=== PATIENT | male | born 1970 | race Caucasian/White ===

== ENCOUNTER 2021-03-11 20:11 | Inpatient (IN) ==
[2021-03-11] MEDS ORDERED: ONDANSETRON INJ 2 MG/ML 2 ML VIAL IV STA (20:44)
[2021-03-11] MEDS ORDERED: SODIUM CHLORIDE 0.9% 1000ML 1,000 ML IV ONE ×2 (20:44→23:42)
[2021-03-11] MEDS ORDERED: FAMOTIDINE 20MG IV PUSH 20 MG/5 ML SYR IV STA (20:44)
--- NOTE | 2021-03-11 20:53 | Emergency Department Note ---
Impression & Plan Metastatic colon cancer to liver, Transaminitis, Influenza A, Dehydration ED Provider Note NAME: MICHEAL BUNCH AGE: 50 SEX: M ARRIVES VIA: Ambulance INFORMANT: Patient ED PROVIDER(S): Giovani Messer MD CHIEF COMPLAINT: Cancer, weakness, nausea/vomiting, ?sepsis PLAN: Disposition: Admit MEDICAL DECISION MAKING: The patient is a pleasant 50-year-old gentleman with a past medical history of metastatic colon cancer with liver metastases who follows at [facility] in [facility] who presents to the emergency department accompanied by his for evaluation of worsening generalized weakness, nausea and vomiting in the setting of having testing performed last week where he was instructed on Friday that he should be admitted for further evaluation of possible biliary obstruction and possible sepsis given lab work that he had performed. Per the patient's the patient was exhausted after being several days there for ongoing testing and had decided he wanted to return home. The further adds that they had identified that the patient's indwelling chemotherapy infusion pump to his liver was no longer functioning and was to be abandoned. They were considering possible options for radiation treatment. They did have a PET scan performed but are awaiting results. The patient and the are unclear regarding what the next steps were given he was leaving against their advice but they were expecting to be contacted for further instruction. 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 They have no local medical providers. The patient describes being tired of his long standing treatments related to his cancer in understands that he might continue to have treatments only to " in 2 years". He describes considering limitations on care though is not specific and would need to consider on a knwa-[id number] basis. He reports if it was noted that he had a blockage of his biliary system that he would be open to a procedure for this. The patient's worries that he is more confused but she does acknowledge that he does exhibit awareness of his condition options for treatment and risks and benefit of pursuing treatment or not. On arrival the patient is fatigued appearing, chronically ill but no acute distress, afebrile heart rate in the 90s and vital signs otherwise stable. He appears clinically dry. He has equivocal jaundice and subtle icterus. His abdomen is nontender. His infusion pump is palpable in the left lower quadrant without discoloration warmth or tenderness. EKG without overt acute ischemia. Chest x-ray negative for acute cardiopulmonary process per my preliminary review. WBC and platelets within normal limits. H/H 13.7/30.3 without prior values for comparison. INR 1.2. Chemistry without metabolic acidosis. BUN/creatinine> 20 consistent with the patient's clinical dry appearance. Lactic acid 1.3, within normal limits. Electrolytes without significant abnormality. LFTs with mild elevations with total bilirubin 2.0 and direct bilirubin 1.3 with AST 79 and alk phos 388 without recent values for comparison. Troponin negative/undetectable. Procalcitonin is mildly elevated at 1.5. UA without evidence of infection. COVID-19 PCR was negative. Influenza PCR was positive for influenza A. CT of the abdomen pelvis was performed and per preliminary stat rad report alissa wells widely metastatic disease involving the liver. 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 I did review the results with the patient and at the bedside and they agree with plan for admission. When informed of his positive flu test and they recalled that they actually knew this from testing performed on Friday at [facility]. Case was discussed with Dr. Henry, [facility] hospitalist, who will evaluate the patient for admission. Zosyn initially ordered empirically however given unable to obtain culture from patient's port will defer empiric treatment until this is obtained given the patient is otherwise stable. Triage Nursing notes reviewed and agree them. Prior medical records reviewed Vital Signs: reviewed and remarkable for hypertension. Differential diagnosis: Infection, dehydration, metabolic abnormality, hypo/hyperglycemia, electrolyte disturbance, anemia, hypoxia, cardiac sources, intracerebral event, toxicologic, neurologic, as well as other pathologies. ER treatment provided: See below. Diagnostics interpreted by me: ECG: Normal sinus rhythm, 83 bpm, no ectopy, LVH, no overt ST elevation or depression, QTC 472, cures 102. Cardiac Monitoring: An order for continuous cardiac monitoring was placed and demonstrated normal sinus rhythm, 83 bpm, no ectopy. Laboratory studies: See below Imaging studies: See below [facility] Preliminary Findings Only See Final Report For Complete Findings CT ABDOMEN & PELVIS With Contrast: Widely metastatic disease involving the liver. Much of the liver parenchyma appears to be involved, particularly of the left hepatic lobe. 11 mm solid nodule of the left lower lobe. This is concerning in the setting of metastatic disease. Portacaval lymphadenopathy. 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 Radiologist: Devyn Velazquez MD Study ready at 22:40 and initial results transmitted at 00:34 Consultation(s): Case was discussed with Dr. Henry, [facility] hospitalist, who will evaluate the patient for admission. HPI: The patient is a pleasant 50-year-old gentleman with a past medical history of metastatic colon cancer with liver metastases who follows at [facility] in [facility] who presents to the emergency department accompanied by his for evaluation of worsening generalized weakness, nausea and vomiting in the setting of having testing performed last week where he was instructed on Friday that he should be admitted for further evaluation of possible biliary obstruction and possible sepsis given lab work that he had performed. Per the patient's the patient was exhausted after being several days there for ongoing testing and had decided he wanted to return home. The further adds that they had identified that the patient's indwelling chemotherapy infusion pump to his liver was no longer functioning and was to be abandoned. They were considering possible options for radiation treatment. They did have a PET scan performed but are awaiting results. The patient and the are unclear regarding what the next steps were given he was leaving against their advice but they were expecting to be contacted for further instruction. 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 They have no local medical providers. The patient describes being tired of his long standing treatments related to his cancer in understands that he might continue to have treatments only to " in 2 years". He describes considering limitations on care though is not specific and would need to consider on a [id number] basis. He reports if it was noted that he had a blockage of his biliary system that he would be open to a procedure for this. The patient's worries that he is more confused but she does acknowledge that he does exhibit awareness of his condition options for treatment and risks and benefit of pursuing treatment or not. ROS: See above HPI for pertinent positives & negatives. A total of 10 systems reviewed and were otherwise negative. PAST MEDICAL HISTORY:See Below PAST SURGICAL HISTORY:See Below FAMILY HISTORY:See Below SOCIAL HISTORY:See Below HOME MEDICATIONS:See Below ALLERGIES:See Below VITALS:See Below PHYSICAL EXAMINATION: GENERAL: Awake, alert, fatigued, chronically-appearing, in no distress HENT: Normocephalic, atraumatic. Oropharynx with dry mucous membranes and otherwise unremarkable. EYES: Normal conjunctiva. Sclera with subtle icterus. NECK: Supple. No nuchal rigidity. FROM. No JVD. RESPIRATORY: Clear to auscultation. CARDIAC: Regular rate, normal rhythm. Extremities warm and well perfused. Pulses equal. ABDOMEN: Soft, non-distended. No tenderness to palpation. Infusion pump is palpable in the left lower quadrant without discoloration warmth or tenderness. No rebound or guarding. No masses. RECTAL: Deferred. MUSCULOSKELETAL: Chest examination reveals no tenderness. The back is symmetrical on inspection without obvious abnormality. There is no CVA tenderness to palpation. No joint edema. LOWER EXTREMITIES: Calves are equal size bilaterally and non-tender. No edema. No discoloration. NEURO: Normal sensorium. No sensory or motor deficits noted. SKIN: No rash. Equivocal jaundice. Giovani Messer MD Past Med/Surg History Medical History Hypertension Metastatic colon cancer to liver Family History Other Family history non-contributory Social History Smoking Status: Never smoker Feels Safe at Home: Yes Allergies Allergies Allergy/AdvReac Type Severity Reaction Status Date / Time No Known Allergies Allergy Unverified 03/11/21 22:08 Home Meds Home Medications Medication Instructions Recorded Confirmed lisinopril 20 mg tablet 20 mg PO DAILY 03/11/21 03/11/21 lorazepam 0.5 mg tablet 0.5 mg PO TID PRN 03/11/21 03/11/21 ondansetron HCl 8 mg tablet 8 mg PO Q8 PRN 03/11/21 03/11/21 oxycodone 5 mg tablet 5 mg PO UD PRN 03/11/21 03/11/21 Results & Data (ED) Vital Signs Vital Signs - 24 hr 03/11/21 20:19 03/11/21 20:25 03/11/21 20:30 Temperature 37 C Temperature Source Oral Pulse Rate 96 H 94 H 88 Pulse Rate [Apical] Pulse Rate from SpO2 Sensor 95 H 88 Pulse Rhythm [Apical] Pulse Strength [Apical] Respiratory Rate 20 18 18 Respiratory Effort / Characteristics Non-Labored Spontaneous Respiratory Depth Normal Blood Pressure 144/110 H 148/104 H Blood Pressure [Right Arm] Blood Pressure Mean 121 118 Blood Pressure Mean [Right Arm] Blood Pressure Position [Right Arm] Pulse Oximetry 97 94 96 Oxygen Delivery Method Room Air Room Air Room Air Sepsis Recent Fever Within 48 Hours No Sepsis New/Unexplained Change in Mental Status No Sepsis Action Taken by Nursing No Action Required 03/11/21 20:45 03/11/21 21:00 03/11/21 21:15 Temperature Temperature Source Pulse Rate 72 Pulse Rate [Apical] Pulse Rate from SpO2 Sensor 73 Pulse Rhythm [Apical] Pulse Strength [Apical] Respiratory Rate 13 Respiratory Effort / Characteristics Non-Labored Non-Labored Respiratory Depth Blood Pressure 140/102 H Blood Pressure [Right Arm] Blood Pressure Mean 114 Blood Pressure Mean [Right Arm] Blood Pressure Position [Right Arm] Pulse Oximetry 97 Oxygen Delivery Method Room Air Sepsis Recent Fever Within 48 Hours Sepsis New/Unexplained Change in Mental Status Sepsis Action Taken by Nursing 03/11/21 21:30 03/11/21 21:45 03/11/21 22:00 Temperature Temperature Source Pulse Rate 67 82 Pulse Rate [Apical] Pulse Rate from SpO2 Sensor 71 87 Pulse Rhythm [Apical] Pulse Strength [Apical] Respiratory Rate 17 20 Respiratory Effort / Characteristics Non-Labored Respiratory Depth Blood Pressure 153/103 H 163/109 H Blood Pressure [Right Arm] Blood Pressure Mean 119 127 Blood Pressure Mean [Right Arm] Blood Pressure Position [Right Arm] Pulse Oximetry 97 95 Oxygen Delivery Method Room Air Room Air Sepsis Recent Fever Within 48 Hours Sepsis New/Unexplained Change in Mental Status Sepsis Action Taken by Nursing 03/11/21 22:15 03/12/21 00:43 Temperature Temperature Source Pulse Rate Pulse Rate [Apical] 66 Pulse Rate from SpO2 Sensor Pulse Rhythm [Apical] Regular Pulse Strength [Apical] Normal Respiratory Rate 19 Respiratory Effort / Characteristics Non-Labored Non-Labored Respiratory Depth Normal Blood Pressure Blood Pressure [Right Arm] 174/105 H Blood Pressure Mean Blood Pressure Mean [Right Arm] 128 Blood Pressure Position [Right Arm] Lying Pulse Oximetry 98 Oxygen Delivery Method Room Air Sepsis Recent Fever Within 48 Hours Sepsis New/Unexplained Change in Mental Status Sepsis Action Taken by Nursing Laboratory Data Attestation: I reviewed the patient's lab results. Result diagrams: 03/11/21 20:31 03/11/21 20:31 Lab Results 03/11/21 03/11/21 03/11/21 Range/Units 20:31 20:31 20:31 WBC (4.8-10.8) K/uL RBC (4.7-6.1) M/uL Hgb (14.0-18.0) g/dL Hct (42-52) % MCV (80-100) fL MCH (25-34) pg MCHC (32-36) g/dL RDW Std Deviation (36.4-46.3) fL RDW Coeff of Wade (11.5-14.5) % Plt Count (130-400) K/uL MPV (7.4-10.4) fL Immature Gran % (Auto) % Neut % (Auto) % Lymph % (Auto) % [place] % (Auto) % Eos % (Auto) % Baso % (Auto) % Neut # (Auto) (1.4-6.5) K/uL Lymph # (Auto) (1.2-3.4) K/uL [place] # (Auto) (0.11-0.59) K/uL Eos # (Auto) (0-0.5) K/uL Baso # (Auto) (0-0.2) K/uL Immature Gran # (Auto) (0.00-0.02) K/uL PT (9.0-12.0) Seconds INR (0.9-1.1) APTT (21.0-31.0) Seconds PTT Ratio Sodium 132 L (136-145) mmol/L Potassium 3.7 (3.5-5.1) mmol/L Chloride 96 L (98-107) mmol/L Carbon Dioxide 29 (21-32) mmol/L Anion Gap 7.0 (3-11) BUN 19 H (7-18) mg/dl Creatinine 0.75 (0.6-1.4) mg/dl Est Cr Clr Drug Dosing 126.5 ml/min Est GFR ( Amer) 122.2 ml/min Est GFR (Non-Af Amer) 105.5 ml/min BUN/Creatinine Ratio 24.9 H (10-20) Glucose 94 (70-99) mg/dl Lactate (0.4-2.0) mmol/L Calcium 9.0 (8.5-10.1) mg/dl Magnesium 2.2 (1.8-2.4) mg/dl Total Bilirubin 2.0 H (0.2-1) mg/dl Direct Bilirubin 1.3 H (0-0.2) mg/dl AST 79 H (15-37) U/L ALT 52 (12-78) Alkaline Phosphatase 388 H (45-117) U/L Ammonia < 10.0 L (11-32) umol/L Troponin I < 0.015 (0-0.045) ng/ml Total Protein 6.9 (6.4-8.2) gm/dl Albumin 2.4 L (3.4-5.0) gm/dl Globulin 4.5 H (2.5-4.0) gm/dl Albumin/Globulin Ratio 0.5 L (0.9-2) Procalcitonin 1.59 H (0-0.5) ng/ml Urine Color Urine Appearance (Clear) Urine pH (4.5-7.5) Ur Specific Orient (1.000-1.030) Urine Protein (Negative) Urine Glucose (UA) (Negative) Urine Ketones (Negative) Urine Blood (Negative) Urine Nitrite (Negative) Urine Bilirubin (Negative) Urine Urobilinogen (Negative) Ur Leukocyte Esterase (Negative) SARS-CoV-2 (PCR) (Negative) Influenza Type A (PCR) (Neg) Influenza Type B (PCR) (Neg) RSV (RT-PCR) (Neg) 03/11/21 03/11/21 03/11/21 Range/Units 20:31 20:31 20:31 WBC 5.44 (4.8-10.8) K/uL RBC 3.82 L (4.7-6.1) M/uL Hgb 13.7 L (14.0-18.0) g/dL Hct 38.3 L (42-52) % MCV 100.3 H (80-100) fL MCH 35.9 H (25-34) pg MCHC 35.8 (32-36) g/dL RDW Std Deviation 43.2 (36.4-46.3) fL RDW Coeff of Wade 11.7 (11.5-14.5) % Plt Count 151 (130-400) K/uL MPV 10.0 (7.4-10.4) fL Immature Gran % (Auto) 0.4 % Neut % (Auto) 76.8 % Lymph % (Auto) 11.8 % [place] % (Auto) 9.9 % Eos % (Auto) 0.9 % Baso % (Auto) 0.2 % Neut # (Auto) 4.18 (1.4-6.5) K/uL Lymph # (Auto) 0.64 L (1.2-3.4) K/uL [place] # (Auto) 0.54 (0.11-0.59) K/uL Eos # (Auto) 0.05 (0-0.5) K/uL Baso # (Auto) 0.01 (0-0.2) K/uL Immature Gran # (Auto) 0.02 (0.00-0.02) K/uL PT 11.7 (9.0-12.0) Seconds INR 1.2 H (0.9-1.1) APTT 28.5 (21.0-31.0) Seconds PTT Ratio 1.1 Sodium (136-145) mmol/L Potassium (3.5-5.1) mmol/L Chloride (98-107) mmol/L Carbon Dioxide (21-32) mmol/L Anion Gap (3-11) BUN (7-18) mg/dl Creatinine (0.6-1.4) mg/dl Est Cr Clr Drug Dosing ml/min Est GFR ( Amer) ml/min Est GFR (Non-Af Amer) ml/min BUN/Creatinine Ratio (10-20) Glucose (70-99) mg/dl Lactate 1.3 (0.4-2.0) mmol/L Calcium (8.5-10.1) mg/dl Magnesium (1.8-2.4) mg/dl Total Bilirubin (0.2-1) mg/dl Direct Bilirubin (0-0.2) mg/dl AST (15-37) U/L ALT (12-78) Alkaline Phosphatase (45-117) U/L Ammonia (11-32) umol/L Troponin I (0-0.045) ng/ml Total Protein (6.4-8.2) gm/dl Albumin (3.4-5.0) gm/dl Globulin (2.5-4.0) gm/dl Albumin/Globulin Ratio (0.9-2) Procalcitonin (0-0.5) ng/ml Urine Color Urine Appearance (Clear) Urine pH (4.5-7.5) Ur Specific Orient (1.000-1.030) Urine Protein (Negative) Urine Glucose (UA) (Negative) Urine Ketones (Negative) Urine Blood (Negative) Urine Nitrite (Negative) Urine Bilirubin (Negative) Urine Urobilinogen (Negative) Ur Leukocyte Esterase (Negative) SARS-CoV-2 (PCR) (Negative) Influenza Type A (PCR) (Neg) Influenza Type B (PCR) (Neg) RSV (RT-PCR) (Neg) 03/11/21 03/12/21 Range/Units 21:14 00:31 WBC (4.8-10.8) K/uL RBC (4.7-6.1) M/uL Hgb (14.0-18.0) g/dL Hct (42-52) % MCV (80-100) fL MCH (25-34) pg MCHC (32-36) g/dL RDW Std Deviation (36.4-46.3) fL RDW Coeff of Wade (11.5-14.5) % Plt Count (130-400) K/uL MPV (7.4-10.4) fL Immature Gran % (Auto) % Neut % (Auto) % Lymph % (Auto) % [place] % (Auto) % Eos % (Auto) % Baso % (Auto) % Neut # (Auto) (1.4-6.5) K/uL Lymph # (Auto) (1.2-3.4) K/uL [place] # (Auto) (0.11-0.59) K/uL Eos # (Auto) (0-0.5) K/uL Baso # (Auto) (0-0.2) K/uL Immature Gran # (Auto) (0.00-0.02) K/uL PT (9.0-12.0) Seconds INR (0.9-1.1) APTT (21.0-31.0) Seconds PTT Ratio Sodium (136-145) mmol/L Potassium (3.5-5.1) mmol/L Chloride (98-107) mmol/L Carbon Dioxide (21-32) mmol/L Anion Gap (3-11) BUN (7-18) mg/dl Creatinine (0.6-1.4) mg/dl Est Cr Clr Drug Dosing ml/min Est GFR ( Amer) ml/min Est GFR (Non-Af Amer) ml/min BUN/Creatinine Ratio (10-20) Glucose (70-99) mg/dl Lactate (0.4-2.0) mmol/L Calcium (8.5-10.1) mg/dl Magnesium (1.8-2.4) mg/dl Total Bilirubin (0.2-1) mg/dl Direct Bilirubin (0-0.2) mg/dl AST (15-37) U/L ALT (12-78) Alkaline Phosphatase (45-117) U/L Ammonia (11-32) umol/L Troponin I (0-0.045) ng/ml Total Protein (6.4-8.2) gm/dl Albumin (3.4-5.0) gm/dl Globulin (2.5-4.0) gm/dl Albumin/Globulin Ratio (0.9-2) Procalcitonin (0-0.5) ng/ml Urine Color Dark Yellow Urine Appearance Clear (Clear) Urine pH 5.5 (4.5-7.5) Ur Specific Orient > 1.045 H (1.000-1.030) Urine Protein Negative (Negative) Urine Glucose (UA) Negative (Negative) Urine Ketones 1+ H (Negative) Urine Blood Negative (Negative) Urine Nitrite Negative (Negative) Urine Bilirubin Negative (Negative) Urine Urobilinogen Positive H (Negative) Ur Leukocyte Esterase Negative (Negative) SARS-CoV-2 (PCR) NEGATIVE (Negative) Influenza Type A (PCR) Positive A* (Neg) Influenza Type B (PCR) Negative (Neg) RSV (RT-PCR) Negative (Neg) Administered Medications Discontinued Medications Sodium Chloride (Nss 1000ml) 1,000 mls @ 999 mls/hr IV .Q1H1M ONE Stop: 03/11/21 21:44 Last Infusion: 03/11/21 22:00 Dose: 0 mls/hr Documented by: [id number] Admin: 03/11/21 20:57 Dose: 999 mls/hr Documented by: [id number] Famotidine (Pepcid 20mg Iv Push) 20 mg in 5 mls @ 2.5 mls/min IV NOW STA Stop: 03/11/21 20:45 Last Admin: 03/11/21 20:56 Dose: 2.5 mls/min Documented by: [id number] Sodium Chloride (Nss 1000ml) 1,000 mls @ 999 mls/hr IV .Q1H1M ONE Stop: 03/12/21 00:42 Last Infusion: 03/12/21 00:42 Dose: 0 mls/hr Documented by: [id number] Admin: 03/12/21 00:01 Dose: 999 mls/hr Documented by: [id number] Lorazepam (Ativan) 0.5 mg in 1 mls @ 1 mls/min IV NOW STA Stop: 03/11/21 23:49 Last Admin: 03/11/21 23:59 Dose: 1 mls/min Documented by: [id number] Ioversol (Optiray 320 100ml) 95 ml IV ONCE ONE Stop: 03/11/21 22:28 Last Admin: 03/11/21 22:35 Dose: 95 ml Documented by: [id number] Ondansetron HCl (Ondansetron Inj 2 Mg/Ml 2 Ml Vial) 4 mg IV NOW STA Stop: 03/11/21 20:45 Last Admin: 03/11/21 20:56 Dose: 4 mg Documented by: [id number] Discharge Plan Visit Data Chief Complaint: Illness Stated Complaint: Illness Discharge Problem: Metastatic colon cancer to liver, Transaminitis, Influenza A, Dehydration Forms Stand Alone Forms: [facility] Prescriptions Prescriptions: No Action ondansetron HCl 8 mg tablet 8 mg PO Q8 PRN (Reason: Nausea) RF: 0 lisinopril 20 mg Tablet 20 mg PO DAILY RF: 0 lorazepam 0.5 mg tablet 0.5 mg PO TID PRN (Reason: Anxiety) RF: 0 oxycodone 5 mg tablet 5 mg PO UD PRN (Reason: Pain) RF: 0 Referrals Referrals: PCP,NO [Physician] -
[2021-03-11 20:56] LABS: Basophils # (auto) 0.01 K/uL (0-0.2); Basophils % (auto) 0.2 %; Eosinophils # (auto) 0.05 K/uL (0-0.5); Eosinophils % (auto) 0.9 %; Hematocrit (blood only) 38.3 % (42-52); Hemoglobin 13.7 g/dL (14.0-18.0); Immature Granulocytes # (auto) 0.02 K/uL (0.00-0.02); Immature Granulocytes % (auto) 0.4 %; Lymphocytes # (auto) 0.64 K/uL (1.2-3.4); Lymphocytes % (auto) 11.8 %; Mean Corpuscular Hemoglobin 35.9 pg (25-34); Mean Corpuscular Hgb Conc 35.8 g/dL (32-36); Mean Corpuscular Volume 100.3 fL (80-100); Monocytes # (auto) 0.54 K/uL (0.11-0.59); Monocytes % (auto) 9.9 %; Neutrophils # (auto) 4.18 K/uL (1.4-6.5); Neutrophils % (auto) 76.8 %; Platelet Count 151 K/uL (130-400); RDW Coefficient of Variation 11.7 % (11.5-14.5); RDW Standard Deviation 43.2 fL (36.4-46.3); Red Blood Count 3.82 M/uL (4.7-6.1); White Blood Count 5.44 K/uL (4.8-10.8)
[2021-03-11 21:07] LABS: INR 1.2 (0.9-1.1); Partial Thromboplastin Ratio 1.1; Partial Thromboplastin Time 28.5 Seconds (21.0-31.0); Prothrombin Time 11.7 Seconds (9.0-12.0)
[2021-03-11 21:19] LABS: Albumin Level 2.4 gm/dl (3.4-5.0); Aspartate Aminotransferase 79 U/L (15-37); BUN Creatinine Ratio 24.9 (10-20); Bilirubin Direct 1.3 mg/dl (0-0.2); Blood Urea Nitrogen 19 mg/dl (7-18); Carbon Dioxide 29 mmol/L (21-32); Creatinine Clr Calc Pharmacy 126.5 ml/min; Est GFR (African American) 122.2 ml/min; Est GFR (Non-African American) 105.5 ml/min; Glucose 94 mg/dl (70-99); Magnesium 2.2 mg/dl (1.8-2.4)
[2021-03-11 21:24] LABS: Alanine Aminotransferase 52 (12-78); Albumin Globulin Ratio 0.5 (0.9-2); Alkaline Phosphatase 388 U/L (45-117); Globulin 4.5 gm/dl (2.5-4.0); Total Protein 6.9 gm/dl (6.4-8.2); Troponin I < 0.015 ng/ml (0-0.045)
[2021-03-11 22:00] LABS: Chloride 96 mmol/L (98-107); Potassium 3.7 mmol/L (3.5-5.1); Sodium 132 mmol/L (136-145)
[2021-03-11] MEDS ORDERED: PIPERACILL/TAZOBAC CONSULT ACTIVE PRN (22:06)
[2021-03-11] MEDS ORDERED: PIPERACILLIN/TAZOBACTAM 4.5 GM/120 ML BAG IV ONE (22:06)
[2021-03-11 22:20] LABS: Influenza B virus by PCR Negative (Neg); RSV by PCR Negative (Neg); SARS CoV2 RNA(COVID-19) InHosp NEGATIVE (Negative)
[2021-03-11] MEDS ORDERED: OPTIRAY 320 100ml IV ONE (22:27)
[2021-03-11 22:32] LABS: Influenza A virus by PCR Positive (Neg)
[2021-03-11] MEDS ORDERED: LORazepam 0.5 MG/1 ML VIAL IV STA (23:48)
[2021-03-12 00:48] LABS: Appearance Urine Clear (Clear); Bilirubin Urine Negative (Negative); Blood Urine Negative (Negative); Color Urine Dark Yellow; Glucose Urine UA Negative (Negative); Ketones Urine 1+ (Negative); Leukocyte Esterase Urine Negative (Negative); Nitrite Urine Negative (Negative); Protein Urine Negative (Negative); Specific Gravity Urine > 1.045 (1.000-1.030); Urobilinogen Urine Positive (Negative); pH Urine 5.5 (4.5-7.5)
[2021-03-12] MEDS ORDERED: oxyCODONE HCL IR 5 MG TAB (IMMEDIATE RELEASE) PO PRN (03:49)
[2021-03-12] MEDS ORDERED: hydrALAZINE HCL 20 MG/ML VIAL IV PRN (03:49)
[2021-03-12] MEDS ORDERED: LORazepam 0.5 MG TAB PO PRN (03:49)
[2021-03-12] MEDS ORDERED: ONDANSETRON 8MG OD TAB PO PRN (03:56)
[2021-03-12] MEDS ORDERED: HEPARIN 100 UNIT/ML 5ML FLUSH FLUSH PRN (04:17)
[2021-03-12 04:24] LABS: Eosinophils # (auto) 0.02 K/uL (0-0.5); Eosinophils % (auto) 0.4 %; Hematocrit (blood only) 35.6 % (42-52); Hemoglobin 12.5 g/dL (14.0-18.0); Immature Granulocytes # (auto) 0.04 K/uL (0.00-0.02); Immature Granulocytes % (auto) 0.7 %; Lymphocytes # (auto) 0.51 K/uL (1.2-3.4); Mean Corpuscular Hemoglobin 35.1 pg (25-34); Mean Corpuscular Hgb Conc 35.1 g/dL (32-36); Mean Platelet Volume 10.2 fL (7.4-10.4); Monocytes # (auto) 0.65 K/uL (0.11-0.59); Monocytes % (auto) 11.5 %; Neutrophils # (auto) 4.42 K/uL (1.4-6.5); Neutrophils % (auto) 78.4 %; Platelet Count 121 K/uL (130-400); RDW Coefficient of Variation 11.7 % (11.5-14.5); Red Blood Count 3.56 M/uL (4.7-6.1); White Blood Count 5.64 K/uL (4.8-10.8)
--- NOTE | 2021-03-12 04:33 | History and Physical Report ---
DATE OF ADMISSION: 03/12/2021. CHIEF COMPLAINT: Illness, not feeling well. HISTORY OF PRESENT ILLNESS: This is a 50-year-old male with a past medical history significant for stage IV metastatic colon cancer to the liver, history of hypertension, currently not taking any medications, presents with not feeling well, jaundiced. The patient was diagnosed with stage IV metastatic colon cancer in 05/2019. He seems to be following with [facility] in [facility]. As per the , he initially had one radiation treatment then he had mostly chemo. He has A port placement and also had infusion pump to his liver. Recently he was in the [facility] because and was checked for liver infusion pump,and found that its not working. He also found to have jaundice, they want to get admitted to hospital for possible sepsis and workup for his jaundice and biliary obstruction. The patient did not want to stay and he signed out AMA. He is from [facility], his family doctor in [place]. 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 and patinet are saying they want to establish care in the [place].She brought him here today because he seemed to be somewhat confused, weakness, tired, fatigued. Appetite is down. The patient is alert and awake and answers some questions appropriately, but sometimes seemed confused. His flu came back positive . He says he has some runny nose and some sore throat. Denies any fever, some headache, no blurred visions, no shortness of breath, no chest pain, some nausea, no abdominal pain, no diarrhea or constipation. Normal bladder movements. Hemodynamics are stable. His labs showed bilirubin of 2, direct bilirubin 1.3, alkaline phosphatase 88. Ammonia less than 10. Procalcitonin 1.5. His influenza A was positive. His COVID PCR is negative. The patient is not vaccinated for COVID. ALLERGIES: No known drug allergies. PAST MEDICAL HISTORY: As mentioned above. PAST SURGICAL HISTORY: His gallbladder was taken out when liver infusion pump was placed. MEDICATIONS: Ativan p.r.n., Zofran p.r.n., oxycodone p.r.n. FAMILY HISTORY: Significant for one of the grandparent had colon cancer. Father had cancer, but of sepsis. SOCIAL HISTORY: No smoking. Alcohol, rarely. REVIEW OF SYSTEMS: As per HPI. Rest of the review of systems is negative. PHYSICAL EXAMINATION: GENERAL: The patient is of moderate build, not in acute distress. VITAL SIGNS: Temperature 37, pulse 66, respiratory rate 19, blood pressure 174/105, oxygen 98% on room air. HEENT: Pupils equal, round and reactive to light. Jaundice present. Oral mucosa moist. NECK: No JVD or neck masses. CARDIOVASCULAR: S1 and S2 heard. Regular rate and rhythm. No murmur, no gallop. RESPIRATORY SYSTEM: Normal AP diameter. No accessory muscle use. No wheezing, no crackles. ABDOMEN: Soft, bowel sounds present. Liver infusion pump palpable. Nontender, no distention. CENTRAL NERVOUS SYSTEM: Cranial nerves II through XII are grossly intact, nonfocal. EXTREMITIES: No edema, no erythema. LABORATORY DATA: WBC 5.4, hemoglobin 13.7, hematocrit 38.3, platelets 151. PT 11.7, INR 1.2, APTT 28.5. Sodium 132, potassium 3.7, chloride 96, bicarbonate 29, BUN 19, creatinine 0.7, serum glucose 94, lactate 1.3, calcium 9, magnesium 2.2, total bilirubin 2, direct bilirubin 1.3, AST 17, ALT 52, alkaline phosphatase 388. Ammonia less than 10. Troponin is less than 0.015. Procalcitonin 1.5. Urinalysis, +1 ketones. Influenza type A positive. SARS-CoV-2 PCR negative. RSV negative. IMAGING DATA: Chest x-ray, no acute disease seen. CT abdomen and pelvis with contrast shows widely metastatic disease involving the liver, much of the liver parenchyma involved particularly of the left hepatic lobe, 11 mm solid nodule of the left lower lobe. This is concerning in setting of metastatic disease. Portacaval lymphadenopathy, large segment infarction of the spleen. ASSESSMENT AND PLAN: This is a 50-year-old male who presents with stage IV metastatic colon cancer, mets to liver presents with ongoing weakness and found to have influenza A. 1. Influenza A, supportive treatment. Continue Tamiflu, gentle fluids. Monitor in the hospital. 2. Stage IV metastatic lung cancer diagnosed in 05/2019, it was diagnosed as stage IV, status post chemo. He has A port and also has infusion pump for his liver. Seems As per my discussion with of the patient and he had recently PET scan done at [place], but results are still pending and said they want to establish locally. And also per my understanding patient doesn't want any more systemic chemo and likes to have radiation tx He wanted to have local treatment but liver pump is no longer working.We will consult GI in a.m. for further recommendation. Follow the final report of the CAT scan. 3. Mild elevation of bilirubin. Seems ongoing for some time. Await GI input. We will place on gentle fluids. 4. Hyponatremia. Sodium 132. Follow repeat labs in the a.m. 5. Hypertension. The patient states he is not taking medications because of poor appetite, not eating much. We will place him on IV hydralazine p.r.n. 6. Deep venous thrombosis prophylaxis: Lovenox. DISPOSITION: Admit to med tele. PT/OT prior to discharge. Social service to help with discharge planning. Job ID: [id number]
[2021-03-12 04:44] LABS: Magnesium 1.9 mg/dl (1.8-2.4)
[2021-03-12 04:49] LABS: Albumin Level 2.6 gm/dl (3.4-5.0); BUN Creatinine Ratio 27.3 (10-20); Calcium 8.6 mg/dl (8.5-10.1); Creatinine Clr Calc Pharmacy 166.4 ml/min; Est GFR (African American) 136.8 ml/min; Est GFR (Non-African American) 118.1 ml/min; Potassium 3.8 mmol/L (3.5-5.1)
[2021-03-12 04:51] LABS: Bilirubin Direct 1.1 mg/dl (0-0.2); Bilirubin,Total 1.7 mg/dl (0.2-1); Phosphorus 3.2 mg/dl (2.5-4.9); Total Protein 6.3 gm/dl (6.4-8.2)
[2021-03-12] MEDS ORDERED: PIPERACILL/TAZOBAC CONSULT ACTIVE PRN (05:12)
--- NOTE | 2021-03-12 05:55 | Hospitalist Progress Note ---
Date of Service March 12, 2021 Assessment & Plan Admission and Anticipated Discharge Date Admission Date: March 12, 2021 Subjective Antibiotic zosyn started by Er which will be continued. Will follow cultures. Results & Data Results & Data ([facility]) Vital Signs (Past 12 Hours) Vital Signs Temp Pulse Pulse Resp BP BP Pulse Ox 03/12/21 03:55 69 146/94 H 96 03/12/21 02:33 65 18 161/101 H 96 03/12/21 00:43 66 19 174/105 H 98 03/11/21 22:00 82 20 163/109 H 95 03/11/21 21:30 67 17 153/103 H 97 03/11/21 21:00 72 13 140/102 H 97 03/11/21 20:30 88 18 148/104 H 96 03/11/21 20:25 94 H 18 94 03/11/21 20:19 37 C 96 H 20 144/110 H 97
[2021-03-12] MEDS: D5W AND NSS 1,000 ML IV SCH ×2 (05:59→17:45)
[2021-03-12] MEDS ORDERED: PIPERACILLIN/TAZOBACTAM 3.375 GM in DEXTROSE 5% 100 ML IV SCH (07:00)
--- NOTE | 2021-03-12 07:03 | Hospitalist Progress Note ---
Date of Service March 12, 2021 Assessment & Plan Admission and Anticipated Discharge Date Admission Date: March 12, 2021 Subjective Clarification: Patient has metastatic colon cancer. H and P assesment and plan by error mentioned as lung cancer. Thank you Results & Data Results & Data ([facility]) Vital Signs (Past 12 Hours) Vital Signs Temp Pulse Pulse Pulse Resp BP BP 03/12/21 05:45 36.6 C 99 H 16 134/101 H 03/12/21 03:55 69 146/94 H 03/12/21 02:33 65 18 161/101 H 03/12/21 00:43 66 19 174/105 H 03/11/21 22:00 82 20 163/109 H 03/11/21 21:30 67 17 153/103 H 03/11/21 21:00 72 13 140/102 H 03/11/21 20:30 88 18 148/104 H 03/11/21 20:25 94 H 18 03/11/21 20:19 37 C 96 H 20 144/110 H Pulse Ox 03/12/21 05:45 97 03/12/21 03:55 96 03/12/21 02:33 96 03/12/21 00:43 98 03/11/21 22:00 95 03/11/21 21:30 97 03/11/21 21:00 97 03/11/21 20:30 96 03/11/21 20:25 94 03/11/21 20:19 97
--- NOTE | 2021-03-12 08:09 | CT Scan Report ---
ABDOMEN AND PELVIS CT WITH IV CONTRAST CT DOSE: 479.38 mGy.cm HISTORY: metastatic colon CA, liver mets, jaundice TECHNIQUE: Multiaxial CT images of the abdomen and pelvis were performed following the use of intrave nous contrast. A dose lowering technique was utilized adhering to the principles of ALARA. COMPARISON STUDY: None. FINDINGS: There is a 12 mm nodule within the left lower lobe on image 12. This is concerning for meta static disease. Trace right pleural effusion. There is a 14 mm left hilar lymph node which appears ne crotic. This is also concerning for an ectatic disease. Subcentimeter partially necrotic distal parae sophageal lymph nodes consistent with metastatic disease. Trace right pleural effusion. Extensive met astatic disease throughout the liver with near complete replacement of the left hepatic lobe due to t he metastatic disease. The left hepatic vein and left portal veins are severely narrow and may be obl iterated by the left hepatic lobe masses. Areas of calcification within the left hepatic lobe lesions suggests post therapeutic changes. Large geographic hypodense focus within the spleen consistent wit h an infarct. There is a 2.1 cm patchy sclerotic focus within the left side of the L3 vertebral body. This could represent metastatic disease. Multiple scattered perihepatic soft tissue nodules along th e left hepatic lobe consistent with metastatic disease. There are multiple scattered soft tissue nodu les within the left upper quadrant measuring up to 2.3 cm as well as nodularity within the omentum mo st pronounced within the epigastric region. This consistent with perineal carcinomatosis. No hydronep hrosis. Normal caliber abdominal aorta. The bladder is unremarkable. Mild thickening of the rectum wi th adjacent perirectal edema/fat stranding. No evidence for bowel obstruction. There is a left lower quadrant pump device with the catheter terminating in the right upper quadrant. No evidence for bowel obstruction. Normal bladder. The visualized appendix is unremarkable. Filling defects seen within th e right lower lobe segmental/subsegmental pulmonary artery consistent with a pulmonary embolus. There is evidence for necrotic periportal lymphadenopathy. IMPRESSION: 1. Extensive metastatic disease within the liver most pronounced within the left hepatic lobe. 2. There are associated perihepatic low-density soft tissue nodules along the left hepatic lobe as we ll as omental nodularity. Therefore, this is consistent with peritoneal carcinomatosis. 3. Large splenic infarct. 4. Filling defects seen within the right lower lobe segmental/subsegmental pulmonary artery consisten t with a pulmonary embolus. 5. A 12 mm nodule within the left lower lobe with necrotic left hilar and distal paraesophageal lymph adenopathy. This is also consistent with metastatic disease. 6. Severely narrowed left hepatic and left portal veins which could be obliterated by the extensive m etastatic disease. 7. Mildly thickened rectum. 8. A 2.1 cm patchy sclerotic focus within the left side of the vertebral body. This could represent m etastatic disease. 9. These findings were called/faxed to the referring physician following dictation. ACT 112: Negative or not required by law. Electronically signed by: Issa Feliciano M.D. 03/12/2021 8:07 AM
[2021-03-12] MEDS: OSELTAMIVIR PHOSPHATE 75 MG CAP PO SCH ×2 (08:40→21:51)
--- NOTE | 2021-03-12 08:40 | XRay Report ---
XR chest 1V portable HISTORY: SEPSIS COMPARISON: None. FINDINGS: No pneumothorax. There is mild elevation the right hemidiaphragm. A few bibasilar linear de nsities favor subsegmental atelectasis. No focal lung consolidations to suggest pneumonia. No evidenc e for pulmonary edema. The heart is normal in size. Left subclavian Port-A-Cath terminates in the pro ximal SVC. IMPRESSION: No acute process. ACT 112: Negative or not required by law. Electronically signed by: Issa Feliciano M.D. 03/12/2021 8:39 AM
--- NOTE | 2021-03-12 08:44 | Gastrointestinal Consultation ---
Date of Consultation March 12, 2021 Assessment & Plan (1) Metastatic colon cancer to liver: 50 year old male admitted w/ influenzae A w/ elevated liver enzymes in the setting of metastatic colon cancer to liver w/ recent imaging showing extensive metastatic disease within the liver most w/ associated perihepatic low-density soft tissue nodules along the left hepatic lobe as well as omental nodularity consistent with peritoneal carcinomatosis, narrowed left hepatic and left portal veins which could be obliterated by the extensive metastatic disease, right lobe pulmonary embolus, 12 mm nodule within the left lower lobe with necrotic left hilar and distal paraesophageal lymphadenopathy and 2.1 cm patchy sclerotic focus within the left side of the vertebral body. Would recommend MRCP as next step for evaluation of biliary system, however, concern his elevated liver function test could be related to his metastatic disease. Thank you for allowing us to participate in the care of this patient. Please call with any acute changes, questions or concerns. Please see addendum below with additional recommendation from my supervising physician. Supervising Physician Co-Signing Physician Notes I saw and evaluated the patient. We were consulted for elevation of the patient's liver associated enzymes. The patient has a history of metastatic colorectal cancer with a CT showing widely metastatic disease to his liver. Physical examination No abdominal tenderness No rebound or peritoneal signs Impression: Patient with history of metastatic colorectal cancer, the elevated liver tests likely reflect the burden of disease within his liver. It certainly would be worthwhile to obtain an MRCP to look for evidence of distensible disease from an obstructive process. If the MRCP is negative would recommend the patient follow-up with his oncology provider for further recommendations. MRCP Consider obtaining serologies for hepatitis B, CMV and HSV History of Present Illness Reason for Consultation: elevated Tbili, colon CA Requesting Physician: Ashok Attending Physician: Hermes Pulido MD History of Present Illness 50 year old male with history of stage IV metastatic colon cancer to the liver diagnosed Winter 2019 at OSH, following with [facility] in [facility] admitted w/ FLU-A. GI was asked to evaluate for elevated LFTs. Pt was seen and evaluated, chart reviewed. From GI standpoint feeling at baseline. Denies abd pain. No nausea, vomiting. Denies black or bloody stools. Does report some weakness, fatigue and runny nose. CTAP 2020: Extensive metastatic disease within the liver most pronounced within the left hepatic lobe. 2. There are associated perihepatic low-density soft tissue nodules along the left hepatic lobe as well as omental nodularity. Therefore, this is consistent with peritoneal carcinomatosis. 3. Large splenic infarct. 4. Filling defects seen within the right lower lobe segmental/subsegmental pulmonary artery consistent with a pulmonary embolus. 5. A 12 mm nodule within the left lower lobe with necrotic left hilar and distal paraesophageal lymphadenopathy. This is also consistent with metastatic disease. 6. Severely narrowed left hepatic and left portal veins which could be obliterated by the extensive metastatic disease. 7. Mildly thickened rectum. 8. A 2.1 cm patchy sclerotic focus within the left side of the vertebral body. This could represent metastatic disease. 9. These findings were called/faxed to the referring physician following dictation. Allergies Allergy/AdvReac Type Severity Reaction Status Date / Time No Known Allergies Allergy Unverified 03/11/21 22:08 Home Medications Medication Instructions Recorded Confirmed Type lisinopril 20 mg tablet 20 mg PO DAILY 03/11/21 03/11/21 History lorazepam 0.5 mg tablet 0.5 mg PO TID PRN 03/11/21 03/11/21 History ondansetron HCl 8 mg tablet 8 mg PO Q8 PRN 03/11/21 03/11/21 History oxycodone 5 mg tablet 5 mg PO UD PRN 03/11/21 03/11/21 History Patient History Medical History Hypertension Metastatic colon cancer to liver Family History Other Family history non-contributory Social History Smoking Status: Never smoker Preferred Language: Cameroonian Communication Ability: Effective Butadiene Compressor Operator Required: No Beliefs That Will Affect Care: None Current Living Situation: Spouse Other Information That Helps Us Care for You: No Feels Safe at Home: Yes Safety Concerns: Feels Safe At This Time Review of Systems Review of Systems: All systems reviewed & are unremarkable except as noted in HPI & below Physical Exam Constitutional: WD/WN, vitals as above Eyes: + slight icterus Respiratory: normal respiratory effort, lungs clear to auscultation Cardiovascular: RRR, no murmur, no edema Gastrointestinal (Abdomen): normal bowel sounds, soft, nontender, no hepatosplenomegaly Skin: no rashes, warm and dry Results & Data ([facility]) Vital Signs (Past 12 Hours) Vital Signs Temp Pulse Pulse Pulse Resp BP BP 03/12/21 07:10 36.6 C 89 16 136/87 03/12/21 05:45 36.6 C 99 H 16 134/101 H 03/12/21 03:55 69 146/94 H 03/12/21 02:33 65 18 161/101 H 03/12/21 00:43 66 19 174/105 H 03/11/21 22:00 82 20 163/109 H 03/11/21 21:30 67 17 153/103 H 03/11/21 21:00 72 13 140/102 H Pulse Ox 03/12/21 07:10 99 03/12/21 05:45 97 03/12/21 03:55 96 03/12/21 02:33 96 03/12/21 00:43 98 03/11/21 22:00 95 03/11/21 21:30 97 03/11/21 21:00 97 Diagnostic Findings 03/12/21 03/12/21 03/12/21 Range/Units 04:16 04:16 00:31 WBC 5.64 (4.8-10.8) K/uL RBC 3.56 L (4.7-6.1) M/uL Hgb 12.5 L (14.0-18.0) g/dL Hct 35.6 L (42-52) % MCV 100.0 (80-100) fL MCH 35.1 H (25-34) pg MCHC 35.1 (32-36) g/dL RDW Std Deviation 43.0 (36.4-46.3) fL RDW Coeff of Wade 11.7 (11.5-14.5) % Plt Count 121 L (130-400) K/uL MPV 10.2 (7.4-10.4) fL Immature Gran % (Auto) 0.7 % Neut % (Auto) 78.4 % Lymph % (Auto) 9.0 % Crisp % (Auto) 11.5 % Eos % (Auto) 0.4 % Baso % (Auto) 0.0 % Neut # (Auto) 4.42 (1.4-6.5) K/uL Lymph # (Auto) 0.51 L (1.2-3.4) K/uL Crisp # (Auto) 0.65 H (0.11-0.59) K/uL Eos # (Auto) 0.02 (0-0.5) K/uL Baso # (Auto) 0.00 (0-0.2) K/uL Immature Gran # (Auto) 0.04 H (0.00-0.02) K/uL PT (9.0-12.0) Seconds INR (0.9-1.1) APTT (21.0-31.0) Seconds PTT Ratio Sodium 133 L (136-145) mmol/L Potassium 3.8 (3.5-5.1) mmol/L Chloride 100 (98-107) mmol/L Carbon Dioxide 26 (21-32) mmol/L Anion Gap 7.0 (3-11) BUN 16 (7-18) mg/dl Creatinine 0.57 L (0.6-1.4) mg/dl Est Cr Clr Drug Dosing 166.4 ml/min Est GFR ( Amer) 136.8 ml/min Est GFR (Non-Af Amer) 118.1 ml/min BUN/Creatinine Ratio 27.3 H (10-20) Glucose 100 H (70-99) mg/dl Lactate (0.4-2.0) mmol/L Calcium 8.6 (8.5-10.1) mg/dl Phosphorus 3.2 (2.5-4.9) mg/dl Magnesium 1.9 (1.8-2.4) mg/dl Total Bilirubin 1.7 H (0.2-1) mg/dl Direct Bilirubin 1.1 H (0-0.2) mg/dl AST 69 H (15-37) U/L ALT 49 (12-78) Alkaline Phosphatase 384 H (45-117) U/L Ammonia (11-32) umol/L Troponin I (0-0.045) ng/ml Total Protein 6.3 L (6.4-8.2) gm/dl Albumin 2.6 L (3.4-5.0) gm/dl Globulin (2.5-4.0) gm/dl Albumin/Globulin Ratio (0.9-2) Procalcitonin (0-0.5) ng/ml Urine Color Dark Yellow Urine Appearance Clear (Clear) Urine pH 5.5 (4.5-7.5) Ur Specific [place] > 1.045 H (1.000-1.030) Urine Protein Negative (Negative) Urine Glucose (UA) Negative (Negative) Urine Ketones 1+ H (Negative) Urine Blood Negative (Negative) Urine Nitrite Negative (Negative) Urine Bilirubin Negative (Negative) Urine Urobilinogen Positive H (Negative) Ur Leukocyte Esterase Negative (Negative) SARS-CoV-2 (PCR) (Negative) Influenza Type A (PCR) (Neg) Influenza Type B (PCR) (Neg) RSV (RT-PCR) (Neg) 03/11/21 03/11/21 03/11/21 Range/Units 21:14 20:31 20:31 WBC (4.8-10.8) K/uL RBC (4.7-6.1) M/uL Hgb (14.0-18.0) g/dL Hct (42-52) % MCV (80-100) fL MCH (25-34) pg MCHC (32-36) g/dL RDW Std Deviation (36.4-46.3) fL RDW Coeff of Wade (11.5-14.5) % Plt Count (130-400) K/uL MPV (7.4-10.4) fL Immature Gran % (Auto) % Neut % (Auto) % Lymph % (Auto) % Crisp % (Auto) % Eos % (Auto) % Baso % (Auto) % Neut # (Auto) (1.4-6.5) K/uL Lymph # (Auto) (1.2-3.4) K/uL Crisp # (Auto) (0.11-0.59) K/uL Eos # (Auto) (0-0.5) K/uL Baso # (Auto) (0-0.2) K/uL Immature Gran # (Auto) (0.00-0.02) K/uL PT 11.7 (9.0-12.0) Seconds INR 1.2 H (0.9-1.1) APTT 28.5 (21.0-31.0) Seconds PTT Ratio 1.1 Sodium (136-145) mmol/L Potassium (3.5-5.1) mmol/L Chloride (98-107) mmol/L Carbon Dioxide (21-32) mmol/L Anion Gap (3-11) BUN (7-18) mg/dl Creatinine (0.6-1.4) mg/dl Est Cr Clr Drug Dosing ml/min Est GFR ( Amer) ml/min Est GFR (Non-Af Amer) ml/min BUN/Creatinine Ratio (10-20) Glucose (70-99) mg/dl Lactate 1.3 (0.4-2.0) mmol/L Calcium (8.5-10.1) mg/dl Phosphorus (2.5-4.9) mg/dl Magnesium (1.8-2.4) mg/dl Total Bilirubin (0.2-1) mg/dl Direct Bilirubin (0-0.2) mg/dl AST (15-37) U/L ALT (12-78) Alkaline Phosphatase (45-117) U/L Ammonia (11-32) umol/L Troponin I (0-0.045) ng/ml Total Protein (6.4-8.2) gm/dl Albumin (3.4-5.0) gm/dl Globulin (2.5-4.0) gm/dl Albumin/Globulin Ratio (0.9-2) Procalcitonin (0-0.5) ng/ml Urine Color Urine Appearance (Clear) Urine pH (4.5-7.5) Ur Specific [place] (1.000-1.030) Urine Protein (Negative) Urine Glucose (UA) (Negative) Urine Ketones (Negative) Urine Blood (Negative) Urine Nitrite (Negative) Urine Bilirubin (Negative) Urine Urobilinogen (Negative) Ur Leukocyte Esterase (Negative) SARS-CoV-2 (PCR) NEGATIVE (Negative) Influenza Type A (PCR) Positive A* (Neg) Influenza Type B (PCR) Negative (Neg) RSV (RT-PCR) Negative (Neg) 03/11/21 03/11/21 03/11/21 Range/Units 20:31 20:31 20:31 WBC 5.44 (4.8-10.8) K/uL RBC 3.82 L (4.7-6.1) M/uL Hgb 13.7 L (14.0-18.0) g/dL Hct 38.3 L (42-52) % MCV 100.3 H (80-100) fL MCH 35.9 H (25-34) pg MCHC 35.8 (32-36) g/dL RDW Std Deviation 43.2 (36.4-46.3) fL RDW Coeff of Wade 11.7 (11.5-14.5) % Plt Count 151 (130-400) K/uL MPV 10.0 (7.4-10.4) fL Immature Gran % (Auto) 0.4 % Neut % (Auto) 76.8 % Lymph % (Auto) 11.8 % Crisp % (Auto) 9.9 % Eos % (Auto) 0.9 % Baso % (Auto) 0.2 % Neut # (Auto) 4.18 (1.4-6.5) K/uL Lymph # (Auto) 0.64 L (1.2-3.4) K/uL Crisp # (Auto) 0.54 (0.11-0.59) K/uL Eos # (Auto) 0.05 (0-0.5) K/uL Baso # (Auto) 0.01 (0-0.2) K/uL Immature Gran # (Auto) 0.02 (0.00-0.02) K/uL PT (9.0-12.0) Seconds INR (0.9-1.1) APTT (21.0-31.0) Seconds PTT Ratio Sodium (136-145) mmol/L Potassium (3.5-5.1) mmol/L Chloride (98-107) mmol/L Carbon Dioxide (21-32) mmol/L Anion Gap (3-11) BUN (7-18) mg/dl Creatinine (0.6-1.4) mg/dl Est Cr Clr Drug Dosing ml/min Est GFR ( Amer) ml/min Est GFR (Non-Af Amer) ml/min BUN/Creatinine Ratio (10-20) Glucose (70-99) mg/dl Lactate (0.4-2.0) mmol/L Calcium (8.5-10.1) mg/dl Phosphorus (2.5-4.9) mg/dl Magnesium (1.8-2.4) mg/dl Total Bilirubin (0.2-1) mg/dl Direct Bilirubin (0-0.2) mg/dl AST (15-37) U/L ALT (12-78) Alkaline Phosphatase (45-117) U/L Ammonia < 10.0 L (11-32) umol/L Troponin I (0-0.045) ng/ml Total Protein (6.4-8.2) gm/dl Albumin (3.4-5.0) gm/dl Globulin (2.5-4.0) gm/dl Albumin/Globulin Ratio (0.9-2) Procalcitonin 1.59 H (0-0.5) ng/ml Urine Color Urine Appearance (Clear) Urine pH (4.5-7.5) Ur Specific [place] (1.000-1.030) Urine Protein (Negative) Urine Glucose (UA) (Negative) Urine Ketones (Negative) Urine Blood (Negative) Urine Nitrite (Negative) Urine Bilirubin (Negative) Urine Urobilinogen (Negative) Ur Leukocyte Esterase (Negative) SARS-CoV-2 (PCR) (Negative) Influenza Type A (PCR) (Neg) Influenza Type B (PCR) (Neg) RSV (RT-PCR) (Neg) 03/11/21 Range/Units 20:31 WBC (4.8-10.8) K/uL RBC (4.7-6.1) M/uL Hgb (14.0-18.0) g/dL Hct (42-52) % MCV (80-100) fL MCH (25-34) pg MCHC (32-36) g/dL RDW Std Deviation (36.4-46.3) fL RDW Coeff of Wade (11.5-14.5) % Plt Count (130-400) K/uL MPV (7.4-10.4) fL Immature Gran % (Auto) % Neut % (Auto) % Lymph % (Auto) % Crisp % (Auto) % Eos % (Auto) % Baso % (Auto) % Neut # (Auto) (1.4-6.5) K/uL Lymph # (Auto) (1.2-3.4) K/uL Crisp # (Auto) (0.11-0.59) K/uL Eos # (Auto) (0-0.5) K/uL Baso # (Auto) (0-0.2) K/uL Immature Gran # (Auto) (0.00-0.02) K/uL PT (9.0-12.0) Seconds INR (0.9-1.1) APTT (21.0-31.0) Seconds PTT Ratio Sodium 132 L (136-145) mmol/L Potassium 3.7 (3.5-5.1) mmol/L Chloride 96 L (98-107) mmol/L Carbon Dioxide 29 (21-32) mmol/L Anion Gap 7.0 (3-11) BUN 19 H (7-18) mg/dl Creatinine 0.75 (0.6-1.4) mg/dl Est Cr Clr Drug Dosing 126.5 ml/min Est GFR ( Amer) 122.2 ml/min Est GFR (Non-Af Amer) 105.5 ml/min BUN/Creatinine Ratio 24.9 H (10-20) Glucose 94 (70-99) mg/dl Lactate (0.4-2.0) mmol/L Calcium 9.0 (8.5-10.1) mg/dl Phosphorus (2.5-4.9) mg/dl Magnesium 2.2 (1.8-2.4) mg/dl Total Bilirubin 2.0 H (0.2-1) mg/dl Direct Bilirubin 1.3 H (0-0.2) mg/dl AST 79 H (15-37) U/L ALT 52 (12-78) Alkaline Phosphatase 388 H (45-117) U/L Ammonia (11-32) umol/L Troponin I < 0.015 (0-0.045) ng/ml Total Protein 6.9 (6.4-8.2) gm/dl Albumin 2.4 L (3.4-5.0) gm/dl Globulin 4.5 H (2.5-4.0) gm/dl Albumin/Globulin Ratio 0.5 L (0.9-2) Procalcitonin (0-0.5) ng/ml Urine Color Urine Appearance (Clear) Urine pH (4.5-7.5) Ur Specific [place] (1.000-1.030) Urine Protein (Negative) Urine Glucose (UA) (Negative) Urine Ketones (Negative) Urine Blood (Negative) Urine Nitrite (Negative) Urine Bilirubin (Negative) Urine Urobilinogen (Negative) Ur Leukocyte Esterase (Negative) SARS-CoV-2 (PCR) (Negative) Influenza Type A (PCR) (Neg) Influenza Type B (PCR) (Neg) RSV (RT-PCR) (Neg)
[2021-03-12] MEDS ORDERED: LORazepam 0.5 MG/1 ML VIAL IV PRN (08:51)
[2021-03-12] MEDS ORDERED: ENOXAPARIN INJ 40 MG/0.4 ML SYR SQ SCH (09:00)
--- NOTE | 2021-03-12 09:44 | CT Scan Report ---
CT SCAN OF THE BRAIN WITHOUT IV CONTRAST CLINICAL HISTORY: Change in mental status. History of metastatic colon cancer. COMPARISON STUDY: No priors. TECHNIQUE: Unenhanced axial CT scan of the brain is performed from the vertex to the skull base. A d ose lowering technique was utilized adhering to the principles of ALARA. CT DOSE: 537.48 mGy.cm FINDINGS: Brain parenchyma: The brain parenchyma is normal in appearance. There is no hemorrhage, mass effect, or evidence of acute territorial ischemia by CT criteria. Morales-white matter differentiation is preser channing. Mineralization is noted in the basal ganglia. No extra-axial fluid collection is seen. Ventricles, sulci, cisterns: Normal in configuration. Intracranial vasculature: There is mild atherosclerotic calcification of the cavernous carotid and ve rtebral arteries. Calvarium: No destructive calvarial lesion is identified. Sinuses and mastoids: The visualized paranasal sinuses are clear. The mastoid air cells are well pneu matized. Orbits: The bony orbits are grossly intact. IMPRESSION: There is no hemorrhage, mass effect, or evidence of acute territorial ischemia by CT yue dai. ACT 112: Negative or not required by law. Electronically signed by: Kaushal Smith M.D. 03/12/2021 9:43 AM
[2021-03-12] MEDS ORDERED: ENOXAPARIN INJ 40 MG/0.4 ML SYR SQ ONE (10:30)
--- NOTE | 2021-03-12 13:35 | Hospitalist Progress Note ---
Date of Service March 12, 2021 Assessment & Plan (1) Influenza A: Plan: Covid PCR negative Influenza type B+ Chest x-ray no pneumonia Continue Tamiflu day #1 (2) Acute pulmonary embolism: Plan: Found on CT abdomen and pelvis Positive right lower lobe segmental and subsegmental PEs Acute per radiologist Currently hemodynamically stable, on room air CT head: No signs of metastasis Start Lovenox 85 mg twice daily (3) Metastatic colon cancer to liver: Plan: Follows with [facility] oncology service Status post chemo and radiation, status post a port, liver infusion Had a recent visit and PET scan last Friday Discussed with patient and his , would like to establish care locally in [place] Contacted patient's oncologist at [facility] Dr. Bonilla, telephone #[phone], awaiting callback Positive bilirubinemia GI consulted MRCP ordered Hypertension. The patient states he is not taking medications because of poor appetite, not eating much. We will place him on IV hydralazine p.r.n. DISPOSITION:Pending PT OT evaluation Usually lives with his plan of care discussed with patient and his on the phone in detail and at length all questions answered They are understanding, agreeable, comfortable with the plan of care Admission and Anticipated Discharge Date Admission Date: March 12, 2021 Subjective Follow-up for influenza, weakness, colon cancer stage IV liver mets, etc. He was seen resting in bed, comfortable, not in distress Awake, alert, oriented x3, answers questions appropriately States he feels improved compared to yesterday Denies cough, shortness of breath, fevers or chills Does report right lower chest pain with inspiration No abdominal pain, nausea vomiting No BMs yet No other symptoms Review of Systems Review of Systems: all noted and negative except for above Physical Exam Physical Exam: General- oriented x 3, not in distress, speaks in sentences with no effort or accessory muscle use Head- atraumatic Eyes- PERRL, EOMI, very mild jaundice ENT- oropharynx clear Dry oral mucosa Neck- supple, no JVD, no adenopathy, no thyromegaly; carotids +2/2, no bruits appreciated Lungs- clear to auscultation bilaterally, no rales/wheezes Heart- normal rate, regular rhythm; no murmur, no gallop, no rub appreciated Abdomen- normal bowel sounds, nondistended, soft, nontender, no masses or hepatosplenomegaly Extremities- no pretibial edema, no calf tenderness; peripheral pulses intact Neuro- alert, oriented x 3; CN 2-12 grossly intact; motor 5/5 bilaterally;sensation 100% on all extremities; no other gross focal neurologic deficits Skin- warm & dry Results & Data Results & [facility] ([facility]) Vital Signs (Past 12 Hours) Vital Signs Temp Pulse Pulse Resp BP Pulse Ox 03/12/21 07:10 36.6 C 89 16 136/87 99 03/12/21 05:45 36.6 C 99 H 16 134/101 H 97 03/12/21 03:55 69 146/94 H 96 03/12/21 02:33 65 18 161/101 H 96 all noted and reviewed including below
[2021-03-12] MEDS: PIPERACILLIN/TAZOBACTAM 3.375 GM in DEXTROSE 5% 100 ML IV SCH ×2 (13:46→21:53)
--- NOTE | 2021-03-12 15:38 | Communication Note ---
Date of Service: March 12, 2021 Unfortrunaly the patient is not able to undergo MRI. His CT does show widely metastatic disease to his liver which likely accounts for the elevated liver tests. For the present would hold on any additional imaging. Perhaps the patient will be best served with a follow-up by Medical oncology to discuss his options at this point. Please call with any questions or concerns, GI to sign off.
[2021-03-12] MEDS: ENOXAPARIN 80 MG/0.8 ML SYR SC SCH (21:50)
[2021-03-13] MEDS: PIPERACILLIN/TAZOBACTAM 3.375 GM in DEXTROSE 5% 100 ML IV SCH (05:33)
[2021-03-13] MEDS: OSELTAMIVIR PHOSPHATE 75 MG CAP PO SCH ×2 (08:45→20:19)
[2021-03-13] MEDS: ENOXAPARIN 80 MG/0.8 ML SYR SC SCH (08:45)
[2021-03-13] MEDS: D5W AND NSS 1,000 ML IV SCH ×2 (08:48→20:19)
[2021-03-13] MEDS: ONDANSETRON INJ 2 MG/ML 2 ML VIAL IV PRN (14:44)
--- NOTE | 2021-03-13 15:39 | Electrocardiogram Report ---
Test Reason : Blood Pressure : / mmHG Vent. Rate : 083 BPM Atrial Rate : 083 BPM P-R Int : 132 ms QRS Dur : 102 ms QT Int : 402 ms P-R-T Axes : 042 -29 -06 degrees QTc Int : 472 ms Poor data quality, interpretation may be adversely affected Normal sinus rhythm Minimal voltage criteria for LVH, may be normal variant Borderline ECG No previous ECGs available Confirmed by Blayne Zamora ([id number]) on 03/13/2021 3:38:45 PM Referred By: REFERRED SELF Confirmed By:Blayne Zamora
--- NOTE | 2021-03-13 16:16 | Hospitalist Progress Note ---
Date of Service March 13, 2021 Assessment & Plan (1) Influenza A: Plan: Positive influenza A, COVID-19 and RSV negative Chest x-ray no pneumonia Continue Tamiflu day #2 (2) Acute pulmonary embolism: Plan: Found on CT abdomen and pelvis Positive right lower lobe segmental and subsegmental PEs Currently hemodynamically stable, on room air CT head: No signs of metastasis Discussed with Dr. Jones who recommends transition to Eliquis. Full dose Lovenox --> start Eliquis Eliquis 10 mg twice daily x 7 days, then 5 mg twice daily (3) Metastatic colon cancer to liver: Plan: Follows with [facility] oncology service Status post chemo and radiation, status post a port, liver infusion Had a recent visit and PET scan last Friday Discussed with patient and his , would like to establish care locally in [place] Dr. Jones consulted, input appreciated Contacted patient's oncologist at [facility] Dr. Bonilla, telephone #[phone], awaiting callback Transaminitis GI consulted and MRCP ordered, however patient unable to undergo MRI study due to a piece of metal in his arm No further recommendations per GI Palliative care consulted, awaiting input (4) Hypertension: Plan: Resume lisinopril today DVT prophylaxis -on Lovenox --> Eliquis Dispo: Likely discharge tomorrow, pending palliative care evaluation. requesting home health services. Case management notified. Plan: Attending Addendum: delayed entry date of service noted above care coordinated with BRADY العلي please refer to her notes for full details, I agree with her notes patient seen and examined, records reviewed by myself as well on exam, patient seen resting in bed, comfortable, in good spirit states he feels much better overall no chest pain, dyspnea, palpitations, dizziness no other symptoms VS noted and reviewed oriented x 3, not in distress, speaks in sentences with no effort nor accessory muscle use normal rate, regular rhythm, no murmurs, (+) click clear breath sounds bilaterally non distended, soft, nontender no bipedal edema, erythema, warmth knee: no edema, warmth, tenderness, full ROM no neuro deficits WBC 6 INR 1.2 ASSESSMENT AND PLAN STREP BACTEREMIA Ceftri 2g IV x 6 weeks KNEE SEPTIC ARTHRITIS RULED OUT synovial fluid culture negative other diagnoses and plan of care as per BRADY العلي's notes Hermes Pulido MD Admission and Anticipated Discharge Date Admission Date: March 12, 2021 Subjective Patient seen and examined. Follow-up for influenza A and acute pulmonary embolism. at the bedside. Patient reports ongoing poor appetite and nausea. No abdominal pain. Denies chest pain or shortness of breath. Review of Systems Review of Systems: ROS per HPI, all other systems reviewed and negative Physical Exam Constitutional: + ill appearing (Chronically); no acute distress Respiratory: normal respiratory effort, lungs clear to auscultation Cardiovascular: Rate/Rhythm: regular rate and regular rhythm Vessels: normal peripheral pulses Extremities: no edema Gastrointestinal (Abdomen): Percussion/Palpation: abdomen soft; abdomen nontender Skin: no rashes, warm and dry Neurologic: no focal motor deficits Psychiatric: Orientation: alert and oriented x 3 Affect: + depressed affect Results & Data Results & Data ([facility]) Vital Signs (Past 12 Hours) Vital Signs Temp Pulse Resp BP Pulse Ox 03/13/21 15:11 36.7 C 76 18 147/95 H 92 03/13/21 08:06 36.9 C 60 16 156/89 H 98
[2021-03-13] MEDS: lisinopril 20 MG TAB PO SCH (18:45)
[2021-03-13] MEDS ORDERED: ALUMINUM/MAGNESIUM/SIMETH (MAALOX MAX) 30 ML UDC PO PRN (19:55)
[2021-03-13] MEDS: APIXABAN 5 MG TABLET PO SCH (20:16)
--- NOTE | 2021-03-13 20:27 | Consultation Report ---
MEDICAL ONCOLOGY CONSULTATION DATE OF SERVICE: 03/13/2021 REASON FOR CONSULTATION: Stage IV colorectal cancer. HISTORY OF PRESENT ILLNESS: Mr. Isaiah Garcia is a pleasant, somewhat unfortunate 50-year-old gentleman with history of stage IV metastatic colorectal cancer involving the liver, admitted to [facility] with general clinical decline and confirmed influenza A infection. This gentleman is actually known to Dr. Smith, my new partner at [facility], as she cared for Mr. Garcia when he was diagnosed in 2019 with metastatic colorectal cancer. The patient has received full complement of standard chemotherapeutic regimens including FOLFOX and FOLFIRI. Mr. Garcia admittedly had not seen Dr. Smith for probably over a year, at which time he was referred to [facility] in [facility] where he had intrahepatic pump placed and was receiving intrahepatic chemotherapy, which unfortunately has not been effective. The patient admits his most recent CEA level was in excess of 5000. He apparently was inpatient at [facility] for suspected sepsis, but opted to be discharged. The patient states he did not sign out against medical advice. That said, had returned to his farm in [place] wishing to establish oncologic care locally. She brought him to the hospital, apparently confused, battling with generalized weakness and anorexic. He estimates losing approximately 50 pounds over the past several months. The patient was worked up in the Emergency Room including a screen for influenza A, which was positive. The patient presented with rhinorrhea and sore throat. I have asked the primary hospitalist service to obtain an updated CEA level. Radiographs were performed on admission, specifically CT scan of the abdomen and pelvis confirming extensive metastatic disease within the liver, most pronounced within the left hepatic lobe. There are associated perihepatic low-density soft tissue nodules along the left hepatic lobe as well as omental nodularity. Findings consistent with peritoneal carcinomatosis. He has a large splenic infarct. He was also confirmed to suffer from acute pulmonary emboli and has been started on enoxaparin. Hospitalist requested guidance today regarding anticoagulation and recommended transition to Eliquis 5 mg p.o. b.i.d. The patient cognitively understands he suffers from terminal disease and wishes to consider therapeutic options with the goal of palliation and life extension. PAST MEDICAL HISTORY: Significant for hypertension and metastatic colorectal cancer. PAST SURGICAL HISTORY: Status post cholecystectomy and insertion of liver infusion pump. MEDICATIONS: P.r.n. oxycodone, Zofran and Ativan. ALLERGIES: No known drug allergies. FAMILY HISTORY: Positive for one grandparent with colorectal cancer. Father also suffered from cancer and subsequently succumbed to sepsis. SOCIAL HISTORY: The patient is . He is a nonsmoker and only rare social alcohol consumption. REVIEW OF SYSTEMS: CONSTITUTIONAL: Negative for fevers, chills or sweats. Positive for rhinorrhea and sore throat. Positive for anorexia and weight loss as described. SKIN: No rashes or lesions. Was reportedly jaundiced. HEENT: Denies headaches, lightheadedness or dizziness. No visual or hearing deficits. Again, positive for rhinorrhea and sore throat, no dysphagia otherwise. LYMPHATICS: Negative for lymphoproliferative disease. CARDIAC: No history of coronary artery disease. No current angina or palpitations. PULMONARY: Negative for COPD. No shortness of breath, dyspnea, or orthopnea. No cough or hemoptysis. GASTROINTESTINAL: Negative for abdominal pain. No nausea, vomiting, diarrhea or constipation. GENITOURINARY: No history of prostate disease. No hematuria, dysuria, or urinary incontinence. PSYCHIATRIC: Negative for anxiety, depression, or psychoses. ENDOCRINE: Negative for diabetes or thyroid disease. MUSCULOSKELETAL: Positive for generalized weakness. No skeletal pain. No arthralgias or myalgias. NEUROLOGIC: Negative for seizure, stroke or migraine headache. HEMATOLOGIC: Positive for newly diagnosed pulmonary emboli. Positive for mild thrombocytopenia. PHYSICAL EXAMINATION: GENERAL: A very pleasant 50-year-old gentleman, awake, alert and appropriate, in no acute distress. VITAL SIGNS: Temperature 36.7, pulse 76, respiratory rate 18, blood pressure 147/95. SKIN: Warm, dry, noncyanotic without petechia, rash or ecchymosis. HEENT: Head atraumatic, normocephalic. Eyes: PERRLA. EOMI. Sclerae are nonicteric. Nares are patent without rhinorrhea or discharge. Throat clear. No buccal lesions or ulcerations. NECK: Supple without JVD or thyromegaly. HEART: Regular rate and rhythm. No clicks, rubs, murmurs or gallops. LUNGS: Clear to auscultation bilaterally. ABDOMEN: Firm, nontender, nondistended. Palpable hepatosplenomegaly. No rigidity or guarding. EXTREMITIES: Musculoskeletal strength and pulses are equal in all 4 quadrants. No clubbing, cyanosis or edema. NEUROLOGIC: Awake, alert and oriented, grossly intact. LABORATORY DATA: WBC count 5640, hemoglobin 12.5, platelet count 121,000. Sodium 133, potassium 3.8, chloride 100, carbon dioxide 26, BUN 16, creatinine 0.57, total bilirubin 1.7, direct bilirubin 1.1, AST 69, ALT 49. Alkaline phosphatase markedly elevated at 384, albumin 2.6. RADIOGRAPHIC DATA: CT scan as described in the HPI. IMPRESSION: 1. General clinical decline. 2. Influenza A. 3. Metastatic colorectal cancer. 4. Acute pulmonary embolism. 5. Hypoalbuminemia. PLAN: Mr. Da Garcia is a very pleasant 50-year-old gentleman who was diagnosed with metastatic colorectal cancer a couple of years ago, actually was managed by Dr. Ansley Smith who has recently joined [facility] as my partner. Dr. Smith is familiar with Mr. Garcia and ultimately will probably participate in helping Mr. Garcia in the transition to palliation. Unfortunately, from a radiographic perspective, his disease appears to have progressed. From my discussion with Mr. Garcia, he has received most of the current standards of care. There are a couple of oral options moving forward including the possibility of Xeloda, Lonsurf, or Stivarga. Based on his previous experiences, Mr. Garcia remains somewhat hesitant to pursue any further treatment. That said, I have asked him to please come to the office once discharged for further discussion should he desire to pursue salvage therapy. In the meantime, Mr. Garcia is appropriate to address all issues of a terminally ill patient including anxiety and most importantly pain management. His nutritional status is suboptimal and should be addressed as well. I certainly would not be against hospice care in this case as I believe his survival is probably measured in a month or perhaps Lastly, I provided recommendations to the hospitalist service to transition him from Lovenox to Eliquis in preparation for discharge, which I anticipate in the next 24 hours. Questions and concerns were addressed with Mr. Garcia at bedside today. I would be happy to reconvene with him in the next week or two to discuss options. I agree with medical management otherwise, and thank you for allowing me to participate in the care of this very pleasant gentleman. Job ID: [id number] [facility]
[2021-03-14] MEDS: D5W AND NSS 1,000 ML IV SCH (08:12)
[2021-03-14] MEDS: OSELTAMIVIR PHOSPHATE 75 MG CAP PO SCH (08:12)
[2021-03-14] MEDS: APIXABAN 5 MG TABLET PO SCH (08:13)
[2021-03-14] MEDS: lisinopril 20 MG TAB PO SCH (08:13)
--- NOTE | 2021-03-14 08:18 | Palliative Care Consultation ---
Date of Consultation March 14, 2021 Assessment & Plan (1) Palliative care encounter: Ms. Garcia is a 50 year old male who presented to the [facility] with Influenza and fatigue. He was diagnosed with metastatic colon cancer and is a patient of Dr. Smith. He has received FOLFOX and FOLFIRI for treatment both local and at [facility]. Additional PMH includes: HTN. Palliative Medicine was consulted to discuss overall goals of care, code status, and symptom management. I met with the patient who was sleeping when I was in the room. Per nursing, confusion somewhat improved today. I called the patients Felipa and talked to her and his ex- (both equally involved and concerned with Philip's care and next steps). We talked at [phone]. We talked at length that his goal is to return home; however, they are not sure whether to proceed with further chemotherapy. We reviewed Dr. Jones's consultation and discussed prognosis of weeks to months. They are taking this rapid decline relatively well; however, are not quite ready for a hospice transition as they would still like to discuss and have open communication regarding oral chemo therapies with [facility]. We discussed home health/palliative vs hospice and after discussion, all in agreement to proceed with [facility] HH/Palliative. Family does want to remain a full code at this time, but they do recognize the importance of Case management and hospitalist aware. See below for s/s management. (2) Lack of appetite: Pt and family states this has been occurring for over 6 months. Marinol has been started. (3) Nausea: Currently on IV Zofran. concerned about knowing when to administer antiemetics. Discussed scheduled dosing with Zofran 8 mg ODT Q6 hours. Palliative Home Health can adjust dosing as necessary. History of Present Illness Reason for Consultation: goals of care Requesting Physician: Dr. Pulido Attending Physician: Emilio Ayala MD History of Present Illness Ms. Garcia is a 50 year old male who presented to the [facility] with Influenza and fatigue. He was diagnosed with metastatic colon cancer and is a patient of Dr. Smith. He has received FOLFOX and FOLFIRI for treatment both local and at [facility]. Additional PMH includes: HTN. Palliative Medicine was consulted to discuss overall goals of care, code status, and symptom management. Please see A/P for further details. Thanks for involving palliative medicine with this patient. . Allergies Allergy/AdvReac Type Severity Reaction Status Date / Time No Known Allergies Allergy Unverified 03/11/21 22:08 Home Medications Medication Instructions Recorded Confirmed Type lisinopril 20 mg tablet 20 mg PO DAILY 03/11/21 03/11/21 History lorazepam 0.5 mg tablet 0.5 mg PO TID PRN 03/11/21 03/11/21 History apixaban 5 mg tablet (Eliquis) 5 mg PO BID #60 tab 03/14/21 Rx apixaban 5 mg tablet (Eliquis) 10 mg PO BID #26 tab 03/14/21 Rx dronabinol 2.5 mg capsule 2.5 mg PO BID #60 cap 03/14/21 Rx ondansetron HCl 8 mg tablet 8 mg PO Q8 #0 tab 03/14/21 03/11/21 Rx oseltamivir 75 mg capsule (Tamiflu) 75 mg PO BID #5 cap 03/14/21 Rx oxycodone 5 mg tablet 5 mg PO Q6H PRN #0 tab 03/14/21 03/11/21 Rx Patient History Medical History (Updated 03/14/21 @ 22:29 by BRADY Hayden) Hypertension Lack of appetite Metastatic colon cancer to liver Nausea Palliative care encounter Family History Other Family history non-contributory Social History Smoking Status: Never smoker Preferred Language: Malay Communication Ability: Effective Clam Sorter Required: No Beliefs That Will Affect Care: None marital status: Current Living Situation: Spouse Other Information That Helps Us Care for You: No Feels Safe at Home: Yes Safety Concerns: Feels Safe At This Time Assistive Devices: None Review of Systems Review of Systems: [place] System Assessment Scale: Pain: 0/3 Nausea: 2/3 Lack of Appetite: 2/3 SOB: 0/3 Palliative Performance Scale: 50% Physical Exam Constitutional: + ill appearing Respiratory: normal respiratory effort Cardiovascular: Rate/Rhythm: regular rate and regular rhythm Gastrointestinal (Abdomen): Inspection/Auscultation: abdomen normal to inspection Psychiatric: Orientation: alert, oriented to person, oriented to place and cooperative Judgement: + limited judgement Results & Data ([place]) Vital Signs (Past 12 Hours) Vital Signs Temp Pulse Resp BP Pulse Ox 03/14/21 08:00 36.8 C 82 18 146/97 H 95 03/13/21 22:43 36.6 C 74 18 145/92 H 97 PG Care Time/CCT Total # of Minutes Spent Total Time Spent with Patient: Total time spent is greater than 50% in coordination of care (as documented) at patient's floor/unit and/or counseling patient: 70 minutes Coding Level of Care Code 26674 Initial Inpt Care Lvl 3 Diagnoses Palliative care encounter Z51.5 Lack of appetite R63.0 Nausea R11.0 Time Spent (min) 70
[2021-03-14 08:27] LABS: Hematocrit (blood only) 35.3 % (42-52); Hemoglobin 12.7 g/dL (14.0-18.0); Mean Corpuscular Hemoglobin 35.5 pg (25-34); Mean Corpuscular Volume 98.6 fL (80-100); Platelet Count 178 K/uL (130-400); RDW Coefficient of Variation 11.8 % (11.5-14.5); RDW Standard Deviation 42.1 fL (36.4-46.3); Red Blood Count 3.58 M/uL (4.7-6.1); White Blood Count 6.42 K/uL (4.8-10.8)
[2021-03-14] MEDS: CALCIUM CARBONATE 500 MG CHEWABLE TAB PO PRN ×2 (08:39→12:53)
[2021-03-14] MEDS: ONDANSETRON INJ 2 MG/ML 2 ML VIAL IV PRN (12:47)
--- NOTE | 2021-03-14 21:16 | Discharge Summary ---
Date of Service March 14, 2021 Admission HPI Per Admitting Provider This is a 50-year-old male with a past medical history significant for stage IV metastatic colon cancer to the liver, history of hypertension, currently not taking any medications, presents with not feeling well, jaundiced. The patient was diagnosed with stage IV metastatic colon cancer in 05/2019. He seems to be following with [facility] in [facility]. As per the , he initially had one radiation treatment then he had mostly chemo. He has A port placement and also had infusion pump to his liver. Recently he was in the [facility] because and was checked for liver infusion pump,and found that its not working. He also found to have jaundice, they want to get admitted to hospital for possible sepsis and workup for his jaundice and biliary obstruction. The patient did not want to stay and he signed out AMA. He is from [facility], his family doctor in [place]. 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 and patinet are saying they want to establish care in the [place].She brought him here today because he seemed to be somewhat confused, weakness, tired, fatigued. Appetite is down. The patient is alert and awake and answers some questions appropriately, but sometimes seemed confused. His flu came back positive . He says he has some runny nose and some sore throat. Denies any fever, some headache, no blurred visions, no shortness of breath, no chest pain, some nausea, no abdominal pain, no diarrhea or constipation. Normal bladder movements. Hemodynamics are stable. His labs showed bilirubin of 2, direct bilirubin 1.3, alkaline phosphatase 88. Ammonia less than 10. Procalcitonin 1.5. His influenza A was positive. His COVID PCR is negative. The patient is not vaccinated for COVID. Admission Exam Per Admitting Provider GENERAL: The patient is of moderate build, not in acute distress. VITAL SIGNS: Temperature 37, pulse 66, respiratory rate 19, blood pressure 174/105, oxygen 98% on room air. HEENT: Pupils equal, round and reactive to light. Jaundice present. Oral mucosa moist. NECK: No JVD or neck masses. CARDIOVASCULAR: S1 and S2 heard. Regular rate and rhythm. No murmur, no gallop. RESPIRATORY SYSTEM: Normal AP diameter. No accessory muscle use. No wheezing, no crackles. ABDOMEN: Soft, bowel sounds present. Liver infusion pump palpable. Nontender, no distention. CENTRAL NERVOUS SYSTEM: Cranial nerves II through XII are grossly intact, nonfocal. EXTREMITIES: No edema, no erythema. Principal Diagnosis Influenza A Acute Pulmonary Embolism Discharge Exam Constitutional WD/WN, vitals as above + ill appearing (chronically); no acute distress Respiratory normal respiratory effort, lungs clear to auscultation Cardiovascular Rate/Rhythm: regular rate and regular rhythm Extremities: no edema Gastrointestinal (Abdomen) Percussion/Palpation: abdomen soft; abdomen nontender Skin no rashes, warm and dry Neurologic no focal motor deficits Psychiatric A+Ox3, euthymic affect Discharge Data Allergies Allergy/AdvReac Type Severity Reaction Status Date / Time No Known Allergies Allergy Unverified 03/11/21 22:08 Consultations GI Oncology Palliative Care Ordered Studies 03/11/21 CT abd/pelvis IMPRESSION: 1. Extensive metastatic disease within the liver most pronounced within the left hepatic lobe. 2. There are associated perihepatic low-density soft tissue nodules along the left hepatic lobe as well as omental nodularity. Therefore, this is consistent with peritoneal carcinomatosis. 3. Large splenic infarct. 4. Filling defects seen within the right lower lobe segmental/subsegmental pulmonary artery consistent with a pulmonary embolus. 5. A 12 mm nodule within the left lower lobe with necrotic left hilar and distal paraesophageal lymphadenopathy. This is also consistent with metastatic disease. 6. Severely narrowed left hepatic and left portal veins which could be obliterated by the extensive metastatic disease. 7. Mildly thickened rectum. 8. A 2.1 cm patchy sclerotic focus within the left side of the vertebral body. This could represent metastatic disease. 9. These findings were called/faxed to the referring physician following dictation. 03/11/21 CXR IMPRESSION: No acute process. 03/12/[address] IMPRESSION: There is no hemorrhage, mass effect, or evidence of acute territorial ischemia by CT criteria. Hospital Course (1) Influenza A: Positive influenza A, COVID-19 and RSV negative Chest x-ray no pneumonia Continue Tamiflu to complete 5 day course (2) Acute pulmonary embolism: Found on CT abdomen and pelvis Positive right lower lobe segmental and subsegmental PEs Hemodynamically stable, on room air CT head: No signs of metastasis Discussed with Dr. Jones who recommends transition to Eliquis. Initially on full dose Lovenox --> start Eliquis Eliquis 10 mg twice daily x 7 days, then 5 mg twice daily (3) Metastatic colon cancer to liver: Follows with [facility] oncology service Status post chemo and radiation, status post a port, liver infusion Had a recent visit and PET scan last Friday Discussed with patient and his , would like to establish care locally in [place] Dr. Jones consulted, input appreciated. Patient will follow up as an outpatient. Palliative care consulted, input appreciated. Patient started on Marinol. Instructed to take Zofran scheduled in lieu of PRN. Will be discharged with [facility] home health/palliative care. Transaminitis In the setting of metastatic colon cancer to liver GI consulted and MRCP ordered, however patient unable to undergo MRI study due to a piece of metal in his arm No further recommendations per GI (4) Hypertension: BP controlled, continue Lisinopril Total Time Total Time Spent Total Time Spent (In Minutes): 40 Discharge Plan Discharge Items Patient Disposition: Home - Home Health Services Reason For Visit: Nausea Discharge Diagnosis: Pulmonary embolism (blood clot in the lung) Influenza A Activity: Resume your previous activity Non-emergency contact: Primary Care Provider and Oncologist Call non-emergency contact if: you have any medication questions, your symptoms worsen, your pain is not controlled, your pain is concerning for you and you have a fever Follow-up/Referrals: Yefri Jones DO [Physician] - (please call the office to schedule an appointment within one week) Daiana Ledbetter MD [Hospitalist] - (Date & Time 03/19/2021 11:00 AM Provider Daiana Ledbetter MD Department General Internal Medicine [facility] If this doesn't work for you, please call to reschedule. Thank yo u) Derrek Amezquita MD [Primary Care Provider] - Diet: Regular Addtl Attending Provider Instructions: You were admitted to the hospital for pulmonary embolism (blood clot in your lung) and also influenza A infection. You were started on a blood thinner Eliquis (apixaban) -you will need to take Eliquis 10 mg twice daily until 03/20/2021, then dose will change to Eliquis 5 mg twice daily on 03/21/2021. You were started on Tamiflu for influenza A infection. You will be discharged on Tamiflu 75 mg twice daily with last dose being on 03/16/2021. You were started on dronabinol (Marinol) 2.5mg twice daily to help increase her appetite. For nausea, you can take ondansetron (Zofran) 8mg every 8 hours scheduled. Please make appointment with Dr. Jones for oncology follow up. Pending Studies at Discharge: No Stand-Alone Forms: [facility], Smoking Cessation Medications and DC Order Prescriptions: New oseltamivir [Tamiflu] 75 mg Capsule 75 mg PO BID Qty: 5 RF: 0 Eliquis 5 mg Tablet 10 mg PO BID Qty: 26 RF: 0 Eliquis 5 mg Tablet 5 mg PO BID Qty: 60 RF: 0 dronabinol 2.5 mg Capsule 2.5 mg PO BID Qty: 60 RF: 0 Continued lisinopril 20 mg Tablet 20 mg PO DAILY RF: 0 lorazepam 0.5 mg tablet 0.5 mg PO TID PRN (Reason: Anxiety) RF: 0 Changed ondansetron HCl 8 mg tablet 8 mg PO Q8 Qty: 0 RF: 0 oxycodone 5 mg tablet 5 mg PO Q6H PRN (Reason: Pain) Qty: 0 RF: 0 Discharge Orders: Discharge Order (Routine); Ordered 03/14/21 Ordered By: Coco Cortes/Other Patient Handouts: Pulmonary Embolism, The Flu (Influenza) Admission Data Admit Date/Time: 03/12/21 01:18 Attending Provider: Emilio Ayala Admit Provider: August Henry Primary Care Provider: Derrek Amezquita Other Providers: August Henry ; Celine Anglin ; Luciana Henry ; Jayal Costa ; Allison Galeana ; Jim Rondon ; Otilia Murrieta ; Nikia Medley ; Watson Metz ; Concha Mcdonald ; Estella Max ; Altagracia Flores ; Analilia Lockwood ; Wu Amato ; Parvez Donis ; Yefri Jones V. ; Ana Laura Abrams ; Hermes Pulido ; [facility] Other Interventions: Discharge Summary Assessment (RN) Last Done: 03/14/21 13:21
[2021-03-20] MEDS ORDERED: APIXABAN 5 MG TABLET PO SCH (21:00)
== END 2021-03-14 14:58 | disposition home health service (06) | DRG 193 ==
LOC: ED 20:11 → EDINP 03-12 01:18 → SUATTDRO 03-12 01:18 → 3E 03-12 03:49
DX: Z20.822 Contact with and (suspected) exposure to COVID-19; I10 Essential (primary) hypertension; R11.0 Nausea; Z92.3 Personal history of irradiation; E86.0 Dehydration; E87.1 Hypo-osmolality and hyponatremia; I26.93 Single subsegmental thrombotic pulmonary embolism without acute cor pulmonale; R63.0 Anorexia; R53.81 Other malaise; J10.1 Influenza due to other identified influenza virus with other respiratory manifestations; E88.09 Other disorders of plasma-protein metabolism, not elsewhere classified; Z80.0 Family history of malignant neoplasm of digestive organs; C18.9 Malignant neoplasm of colon, unspecified; Z92.21 Personal history of antineoplastic chemotherapy; C78.7 Secondary malignant neoplasm of liver and intrahepatic bile duct; Z91.128 Patient's intentional underdosing of medication regimen for other reason